=== PATIENT | female | born 1990 | race African-American/Black ===

== ENCOUNTER 2019-09-22 11:18 | Emergency (ER) | payer OTHER ==
[~2019-09-22] VITALS: Ht 157.5 cm; Wt 81.4 kg
[2019-09-22 11:36] VITALS: BP 146/88
[2019-09-22] MEDS ORDERED: HYDROcodone/APAP 5/325MG 1 TAB TABLET PO ONE (12:45)
[2019-09-22] MEDS ORDERED: ORPHENADRINE CITRATE 60 MG/2 ML VIAL. IM ONE (12:45)
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
[2019-09-22] MEDS ORDERED: ONDANSETRON ODT 4 MG TAB.RAPDIS. PO ONE (13:15)
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
[2019-09-22] MEDS ORDERED: HYDR-3164 PO (13:52)
[2019-09-22] MEDS ORDERED: ORPH100T PO (13:52)
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
== END 2019-09-22 14:25 | disposition home or self-care (01) ==
LOC: ER 11:18
DX: G89.11 Acute pain due to trauma (principal); M54.2 Cervicalgia; M79.601 Pain in right arm; F17.200 Nicotine dependence, unspecified, uncomplicated; Z98.890 Other specified postprocedural states; V98.8XXA Other specified transport accidents, initial encounter; Y93.89 Activity, other specified; Y92.413 State road as the place of occurrence of the external cause; Y99.8 Other external cause status
CPT/HCPCS: 72125; 73030; 73060; 73080; 81025; 96372; 99284; J2360